=== PATIENT | male | born 1980 | race Two or more races ===

== ENCOUNTER 2022-09-27 09:36 | Inpatient (IN) | payer OTHER ==
[~2022-09-27] VITALS: Ht 177.8 cm; Wt 86.2 kg
== END 2022-10-01 12:33 | disposition home or self-care (01) | DRG 394 ==
LOC: ER 09:36 → MEDI 17:35
PROVIDERS: ADMIT Specialist; ATTEND Specialist
DX: K61.1 Rectal abscess (principal); L02.212 Cutaneous abscess of back [any part, except buttock and flank]; L02.31 Cutaneous abscess of buttock; Z16.12 Extended spectrum beta lactamase (ESBL) resistance; B96.89 Other specified bacterial agents as the cause of diseases classified elsewhere; B96.1 Klebsiella pneumoniae [K. pneumoniae] as the cause of diseases classified elsewhere; B96.29 Other Escherichia coli [E. coli] as the cause of diseases classified elsewhere; Z20.822 Contact with and (suspected) exposure to COVID-19; B95.2 Enterococcus as the cause of diseases classified elsewhere